=== PATIENT | male | born 1965 | race Caucasian/White ===

== ENCOUNTER 2019-01-08 14:29 | Outpatient (CLI) | payer OTHER ==
[2019-01-08 15:18] LABS: #Eosinphils 0.1 thou/uL (0.0-0.7); #Lymphocytes 2.2 thou/uL (1.20-3.40); #Monocytes 0.5 thou/uL (0.11-0.59); #Neutrophils 4.3 thou/uL (1.40-6.50); %Basophils 0.5 % (0.0-1.0); %Eosinophils 1.6 % (0.0-10.0); %Lymphocytes 30.9 % (21.0-51.0); %Monocytes 6.9 % (0.0-10.0); %Neutrophils 60.1 % (42.0-75.0); Hemoglobin 16.4 g/dL (14.0-18.0); Mean Corpuscular HGB CONC 33.7 g/dL (32.0-36.0); Mean Corpuscular Hemoglobin 30.4 pg (27.0-31.0); Mean Corpuscular Volume 90.1 fL (78.0-98.0); Mean Platelet Volume 7.9 fL (7.4-10.4); Platelet Count 152 thou/uL (130-400); RBC Distribution Width 12.4 % (11.5-14.5); Red Blood Cell (RBC) Count 5.39 mill/uL (4.70-6.10); White Blood Cell (WBC) Count 7.2 thou/uL (4.8-10.8)
[2019-01-08 15:35] LABS: Anion Gap 16 mmol/L (10-20); BUN (Urea Nitrogen) 15 mg/dL (8.4-25.7); Calc. Creatinine Clearance 0 mL/min (70-130); Calcium 9.8 mg/dL (7.8-10.44); Carbon Dioxide 20 mmol/L (22-29); Chloride 106 mmol/L (98-107); Estimated GFR-MDRD 69; Glucose 104 mg/dL (70-105); Potassium 4.1 mmol/L (3.5-5.1); Sodium 138 mmol/L (136-145)
== END 2019-01-08 14:30 | disposition home or self-care (01) ==
LOC: LABBT 14:29
PROVIDERS: ATTEND Orthopaedic Surgery
DX: Z01.818 Encounter for other preprocedural examination (principal); G56.21 Lesion of ulnar nerve, right upper limb
CPT/HCPCS: 80048; 85025; 93005; 93010

== ENCOUNTER → 2019-01-09 | Day surgery (SDC) | payer OTHER ==
[2019-01-08 14:42] VITALS: BMI 33.3
[~2019-01-09] MED LIST: Dexamethasone 20 MG/5 ML VIAL ONE; Fentanyl 100 MCG/2 ML VIAL ONE; Ketorolac Tromethamine 30 MG/ML VIAL ONE; Lidocaine 1% w/Epinephrine 1:100K 30 ML VIAL ONE; Midazolam HCl 2 mg/2 ml Vial ONE; Ondansetron PF 4 MG/2 ML Vial ONE; PROPOFOL 200 MG/20 ML VIAL ONE
--- NOTE | 2019-01-09 10:44 | OP ---
DATE OF PROCEDURE: 01/09/2019 PREOPERATIVE DIAGNOSIS: Right cubital tunnel syndrome. POSTOPERATIVE DIAGNOSIS: Right cubital tunnel syndrome. PROCEDURES PERFORMED: 1. Right open cubital tunnel/ulnar nerve release with anterior transposition. 2. Placement of long arm splint, right upper extremity. 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 ESTIMATED BLOOD LOSS: Minimal. COMPLICATIONS: None. ANESTHESIA: He had general anesthetic. DISPOSITION: He went to recovery room in stable condition. INDICATIONS: This is an active 53-year-old male, has had significant numbness, tingling, and pain secondary to cubital tunnel syndrome. At this time, he opted to have his ulnar nerve release. DESCRIPTION OF PROCEDURE: After all appropriate consent forms were explained and signed, he was taken back to the operative room and at this time was given general anesthetic. Once the level of anesthesia was appropriate, tourniquet was placed up as possible in the right arm and right arm was then prepped and draped in standard surgical fashion. The patient had to be repositioned a little bit differently secondary to previous shoulder replacement and inability to externally rotate the arm significantly. Once position was appropriate, the right upper extremity was then prepped and draped in standard surgical fashion. Limb was exsanguinated and tourniquet was taken up to 250 mmHg. Using loupe magnification, a 10 blade was used to cut down through skin only. Bipolar was then used to coagulate any brisk venous bleeding. From here on surgical dissection was done with scissors under loupe magnification. Superficial nerve branch was noted, released anteriorly and taken posteriorly to stay out of the field. We then were able to isolate the ulnar nerve and circumferentially released this from proximal and the brachium down distally to the first motor branch. Bipolar again was used to coagulate any brisk venous bleeding. We then freed the soft tissue off the flexor mass, as the ulnar nerve to stay around there later. At this time, a moist Ray-Adis sponge was placed and the tourniquet was let down. At this time, hemostasis was achieved using the bipolar. We then thoroughly irrigated and dried. We used multiple interrupted 0 Vicryl sutures to close our cubital tunnel, so the nerve could not rollback inside this and once this was done, 2-0 Vicryl and nylon sutures were used to close our incision. Prior to closing our skin flaps, we did infiltrate both skin flaps with local for postop pain relief. At this time, a bulky sterile dressing was applied and a long-arm splint was then placed on the posterior aspect of the right arm. The patient was then awakened and he was taken to recovery room in stable condition. All counts were correct at the end of the case and he did receive preoperative IV antibiotics. Job ID: [id number]
== END ==
LOC: SDC 05:54
PROVIDERS: ATTEND Orthopaedic Surgery
PROC: 01N40ZZ Release Ulnar Nerve, Open Approach (ICD-10-PCS; principal; 2019-01-09)
DX: G56.21 Lesion of ulnar nerve, right upper limb (principal); M65.4 Radial styloid tenosynovitis [de Quervain]; I10 Essential (primary) hypertension; G47.30 Sleep apnea, unspecified; Z79.899 Other long term (current) drug therapy; Z87.891 Personal history of nicotine dependence; Z99.89 Dependence on other enabling machines and devices
CPT/HCPCS: J0690; J1100; J1885; J2001; J2250; J2405; J2704; J3010

== ENCOUNTER 2022-03-17 10:33 | Outpatient (CLI) | payer BC | END 2022-03-17 10:34 | disposition home or self-care (01) | LOC: RAD 10:33 | PROVIDERS: ATTEND Orthopaedic Surgery | DX: Z47.1 Aftercare following joint replacement surgery (principal); Z96.611 Presence of right artificial shoulder joint | CPT/HCPCS: 20610; 77002 ==

== ENCOUNTER → 2022-05-05 | Day surgery (SDC) | payer BC ==
[~2022-05-05] MED LIST changes: -Dexamethasone 20 MG/5 ML VIAL ONE; +EPINEPHrine 1 MG/ML AMP ONE; -Fentanyl 100 MCG/2 ML VIAL ONE; +Iopamidol 300 61% 100 ML VIAL FS ONE; -Ketorolac Tromethamine 30 MG/ML VIAL ONE; +Lidocaine 1% PF 5 ML VIAL ONE; -Lidocaine 1% w/Epinephrine 1:100K 30 ML VIAL ONE; -Midazolam HCl 2 mg/2 ml Vial ONE; -Ondansetron PF 4 MG/2 ML Vial ONE; -PROPOFOL 200 MG/20 ML VIAL ONE; +Sodium Chloride 0.9% (PF) 10 ML VIAL ONE
== END | disposition home or self-care (01) ==
LOC: RAD 09:38
PROVIDERS: ATTEND Orthopaedic Surgery
PROC: BP281ZZ Computerized Tomography (CT Scan) of Right Shoulder using Low Osmolar Contrast (ICD-10-PCS; principal; 2022-05-05)
DX: M25.511 Pain in right shoulder (principal); Z96.611 Presence of right artificial shoulder joint
CPT/HCPCS: 23350; J0171; Q9967